=== PATIENT | female | born 1980 | race African-American/Black ===

== ENCOUNTER 2021-09-24 02:40 | Emergency (ER) | payer MEDICAID ==
[~2021-09-24] VITALS: Ht 167.6 cm; Wt 116.7 kg
[2021-09-24 03:00] VITALS: BP 132/86
[2021-09-24] MEDS ORDERED: IBUPROFEN 600MG TABLET PO ONE (04:00)
== END 2021-09-24 04:45 | disposition left against medical advice (07) ==
LOC: ER 03:14
DX: Z53.21 Procedure and treatment not carried out due to patient leaving prior to being seen by health care provider (principal)
CPT/HCPCS: 99281